=== PATIENT | male | born 1970 | race Caucasian/White ===

== ENCOUNTER → 2017-12-20 | Outpatient (REF) ==
[~2017-12-20] MED LIST: ALBUTEROL SULFAT3 M3 IH; ALLEGRA180 MG PO; AMBIEN 10MG10 MG PO; ANORO IH; ASPIRIN 81M81 MG/TA2 PO; BELLADONNA1 TA1 PO; BUSPAR DIVIDOSE15 MG PO; BUTALBITAL/ACET1 TAB PO; DIFLUCAN 100MG100 MG PO; FIBER; FIORICET 325 MG1 TAB PO; FLONASE NASAL S16 GM NS; FLOVENT 110MCG7.9 GM IH; LIPITOR 10MG10 MG PO; LISINOPRIL40 MG PO; LOPRESSOR 225 MG/TAB PO; LUNESTA 1MG TAB1 MG PO; MVI; NEURONTIN800 MG/TAB PO; NEXIUM 20MG CAP20 MG PO; NEXIUM40 MG PO; NORVASC 10MG10 MG PO; PERCOCET 325 MG1 TA2 PO; PHENERGAN 25 TA25 MG PO; PREDNISONE20 MG PO; PROBIOTIC FORMU1 CAP PO; RT ADVAIR 128 DISKUS IH; VALIUM 5MG T5 MG/TAB PO; WELLBUTRIN XL300 M1 PO; XANAX 0.5MG0.5 MG PO; XOPENEX HF0.045 MG/A IH; XOPENEX0.63 MG/3 IH
[2017-12-20 09:46] LABS: PROTHROMBIN TIME 11.3 SECONDS (9.7-12.8)
== END ==
LOC: ZMSC 09:35
PROVIDERS: Urology
DX: Z01.89 Encounter for other specified special examinations (principal)